=== PATIENT | female | born 1970 | race Caucasian/White ===

== ENCOUNTER 2021-06-24 19:01 | Emergency (ER) | payer MEDICAID ==
[~2021-06-24] VITALS: Ht 154.9 cm; Wt 52.6 kg
[2021-06-24 19:03] VITALS: BP 134/76
--- NOTE | 2021-06-24 19:10 | NUR ---
PATIENT AMBULATED TO BED 4.
--- NOTE | 2021-06-24 19:25 | NUR ---
Dr. Galeas examining patient.
--- NOTE | 2021-06-24 19:26 | NUR ---
RECEIVED IN BED 4 WITH C/O RIGHT THUMB PAIN AFTER CLOSING HAND IN CAR DOOR. NAIL BED LEFT THUMB ECHYMOTIC
[2021-06-24] MEDS ORDERED: KETOROLAC 60 MG/2 ML VIAL IM ONE (19:30)
[2021-06-24] MEDS ORDERED: IBUP-2213 PO (20:19)
[2021-06-24 20:23] VITALS: BP 134/76
== END 2021-06-24 20:23 | disposition home or self-care (01) ==
LOC: MED 19:01
DX: M79.644 Pain in right finger(s) (principal); Z88.0 Allergy status to penicillin; Z90.49 Acquired absence of other specified parts of digestive tract; Z98.890 Other specified postprocedural states
CPT/HCPCS: 73140; 96372; 99283; J1885

== ENCOUNTER 2023-04-02 14:36 | Emergency (ER) | payer SELFPAY ==
[~2023-04-02] VITALS: Ht 160 cm; Wt 75.7 kg
[~2023-04-02 14:36] MED LIST: IBUP-2213 PO
[2023-04-02 15:12] VITALS: BP 124/80; PULSE 79; RESP 17; TEMP 97.4; O2SAT 99
[2023-04-02] MEDS ORDERED: IBUPROFEN 600 MG TAB PO ONE (20:25)
[2023-04-02 20:33] VITALS: BP 115/65; PULSE 63; RESP 14; TEMP 97.9; O2SAT 100
[2023-04-02] MEDS ORDERED: IBUP-2213 PO (20:37)
[2023-04-02] MEDS ORDERED: SULF-59 PO (20:37)
[2023-04-02] MEDS ORDERED: KETOROLAC 30 MG/ML VIAL IM ONE (20:40)
== END 2023-04-02 20:47 | disposition home or self-care (01) ==
LOC: MED 14:36
DX: L03.317 Cellulitis of buttock (principal); Z79.899 Other long term (current) drug therapy
CPT/HCPCS: 96372; 99284; J1885